=== PATIENT | female | born 1985 | race Caucasian/White ===

== ENCOUNTER 2019-03-15 09:26 | Emergency (ER) | payer BC, OTHER ==
--- NOTE | 2019-03-15 10:19 | ED ---
Hypertension - History of Current Complaint Chief Complaint: UCLowerExtremity Stated Complaint: TOE INJURY Time Seen by Provider: 03/15/19 09:57 Hx Last Menstrual Period: 03/09/19 - Allergies/Home Medications Allergies/Adverse Reactions: Allergies Allergy/AdvReac Type Severity Reaction Status Date / Time Penicillins Allergy Rash Verified 03/15/19 09:32 Home Medications: Home Medications Dapsone 03/15/19 [History] Doxycycline Monohydrate [Doxycycline Ir-Dr] 1 tab PO DAILY 03/15/19 [History Confirmed 03/15/19] Lisdexamfetamine Dimesylate [Vyvanse] 1 tab PO DAILY 03/15/19 [History Confirmed 03/15/19] PMH/Surg Hx/FS Hx/Imm Hx Infectious Disease History: No Infectious Disease History: Denies: Traveled Outside the [place] in Last 30 Days - Social History Alcohol Use: None Substance Use Type: Reports: None Smoking Status (MU): Never Smoked Tobacco Physical Exam Vital Signs On Initial Exam: Initial Vitals Temp Pulse Resp BP Pulse Ox 97.9 F 56 16 109/55 100 03/15/19 09:34 03/15/19 09:34 03/15/19 09:34 03/15/19 09:34 03/15/19 09:34 Diagnostics - Vital Signs Vital Signs Temp Pulse Resp BP Pulse Ox 03/15/19 09:34 97.9 F 56 16 109/55 100 - Laboratory Lab Statement: Any lab studies that have been ordered have been reviewed, and results considered in the medical decision making process. Hypertension Course/Dx - Diagnoses Provider Diagnoses: Subungual hematoma of great toe of left foot Discharge - Sign-Out/Discharge Documenting (check all that apply): Patient Departure All imaging exams completed and their final reports reviewed: Yes - Discharge Plan Condition: Stable Disposition: HOME Patient Education Materials: Subungual Hematoma (ED) Referrals: Corin Monk MD [Primary Care Provider] - - Billing Disposition and Condition Condition: STABLE Disposition: Home
[2019-03-15] MEDS ORDERED: Lidocaine 1% MPF ** 5 ML VIAL INJ ONE (10:23)
--- NOTE | 2019-03-15 11:58 | UC ---
Lower Extremity/Ankle HPI - HPI Summary HPI Summary: 33 yo female dropped water bottle on left great toe this am - History of Current Complaint Chief Complaint: UCLowerExtremity Stated Complaint: TOE INJURY Time Seen by Provider: 03/15/19 09:57 Hx Obtained From: Patient Hx Last Menstrual Period: 03/09/19 Onset/Duration: Sudden Onset Severity Initially: Severe Severity Currently: Severe Pain Intensity: 10 Pain Scale Used: 0-10 Numeric Aggravating Factor(s): Standing, Ambulation Alleviating Factor(s): Rest Able to Bear Weight: Yes Feet (Multiple View): 1 - subungual hematoma - Allergies/Home Medications Allergies/Adverse Reactions: Allergies Allergy/AdvReac Type Severity Reaction Status Date / Time Penicillins Allergy Rash Verified 03/15/19 09:32 Home Medications: Home Medications Dapsone 03/15/19 [History] Doxycycline Monohydrate [Doxycycline Ir-Dr] 1 tab PO DAILY 03/15/19 [History Confirmed 03/15/19] Lisdexamfetamine Dimesylate [Vyvanse] 1 tab PO DAILY 03/15/19 [History Confirmed 03/15/19] PMH/Surg Hx/FS Hx/Imm Hx Previously Healthy: Yes - Surgical History Surgical History: None - Social History Alcohol Use: None Substance Use Type: None Smoking Status (MU): Never Smoked Tobacco - Immunization History Most Recent Influenza Vaccination: none Most Recent Tetanus Shot: 11/09/14 Most Recent Pneumonia Vaccination: none Review of Systems All Other Systems Reviewed And Are Negative: Yes Constitutional: Positive: Negative Skin: Positive: Bruising Eyes: Positive: Negative ENT: Positive: Negative Respiratory: Positive: Negative Cardiovascular: Positive: Negative Gastrointestinal: Positive: Negative Genitourinary: Positive: Negative Motor: Positive: Negative Neurovascular: Positive: Negative Musculoskeletal: Positive: Negative Neurological: Positive: Negative Psychological: Positive: Negative Physical Exam Triage Information Reviewed: Yes Appearance: Well-Appearing, No Pain Distress, Well-Nourished Vital Signs: Initial Vital Signs Temp 97.9 F 03/15/19 09:34 Pulse 56 03/15/19 09:34 Resp 16 03/15/19 09:34 BP 109/55 03/15/19 09:34 Pulse Ox 100 03/15/19 09:34 Vital Signs Reviewed: Yes Eyes: Positive: Conjunctiva Clear ENT: Positive: Hearing grossly normal. Negative: Nasal congestion, Nasal drainage, Muffled voice, Hoarse voice Neck: Positive: Supple Respiratory: Positive: Lungs clear, Normal breath sounds, No respiratory distress Cardiovascular: Positive: RRR, No Murmur Musculoskeletal: Positive: ROM Intact, No Edema Neurological: Positive: Alert Psychological Exam: Normal Skin Exam: Other - see image Procedures - Procedure Summary Procedure Summary: Procedure : NAIL TREPHINATION OF LEFT GREAT TOE NAIL Procedure explained/questions answer Patient presented here requesting trephination Time out sterile prep digital block with 6cc lidocaine 2 holes placed in nail with electrocautery patient tolerated procedure well sterile dressing applied Diagnostics - Radiology No standard instances Radiology Interpretation Completed By: Radiologist Summary of Radiographic Findings: no fracture Lower Extremity Course/Dx - Differential Dx/Diagnosis Provider Diagnosis: Subungual hematoma of great toe of left foot Discharge - Sign-Out/Discharge Documenting (check all that apply): Patient Departure All imaging exams completed and their final reports reviewed: Yes - Discharge Plan Condition: Stable Disposition: HOME Prescriptions: Cephalexin CAP* [Keflex CAP*] 500 mg PO QID #12 cap Patient Education Materials: Subungual Hematoma (ED) Referrals: Corin Monk MD [Primary Care Provider] - 5 Days Additional Instructions: start keflex tomorrow am - Billing Disposition and Condition Condition: STABLE Disposition: Home
[2019-03-15 12:03] VITALS: BP 108/67
== END 2019-03-15 12:10 | disposition home or self-care (01) ==
LOC: UCEAST 09:26
DX: S90.212A Contusion of left great toe with damage to nail, initial encounter (principal); W22.8XXA Striking against or struck by other objects, initial encounter; Y92.019 Unspecified place in single-family (private) house as the place of occurrence of the external cause; Z88.0 Allergy status to penicillin
CPT/HCPCS: 11740; 99212; G0463